=== PATIENT | male | born 1945 | race Two or more races ===

== ENCOUNTER 2018-02-05 16:39 | Outpatient (CLI) | payer OTHER | END 2018-02-05 16:53 | disposition home or self-care (01) | LOC: LAB 16:39 | DX: R97.20 Elevated prostate specific antigen [PSA] (principal) ==

== ENCOUNTER 2018-02-12 07:13 | Outpatient (CLI) | payer OTHER | END 2018-02-12 11:10 | disposition home or self-care (01) | LOC: SONOGRAMA 07:13 | DX: R97.20 Elevated prostate specific antigen [PSA] (principal) ==

== ENCOUNTER 2020-02-22 14:18 | Outpatient (CLI) | payer OTHER | END 2020-02-22 15:00 | disposition home or self-care (01) | LOC: LAB 14:18 | PROVIDERS: ATTEND Urology | DX: N30.00 Acute cystitis without hematuria (principal) ==

== ENCOUNTER 2020-03-22 08:51 | Outpatient (CLI) | payer OTHER | END 2020-03-22 08:58 | disposition home or self-care (01) | LOC: SONOGRAMA 08:51 → MAMO-SONO 09:45 | PROVIDERS: ATTEND Urology | DX: R97.20 Elevated prostate specific antigen [PSA] (principal); R31.1 Benign essential microscopic hematuria; N40.1 Benign prostatic hyperplasia with lower urinary tract symptoms ==

== ENCOUNTER 2020-09-26 07:13 | Outpatient (CLI) | payer OTHER | END 2020-09-26 07:15 | disposition home or self-care (01) | LOC: TOM 07:13 | PROVIDERS: ATTEND Urology | DX: Q61.02 Congenital multiple renal cysts (principal); K57.90 Diverticulosis of intestine, part unspecified, without perforation or abscess without bleeding; N30.00 Acute cystitis without hematuria; N40.1 Benign prostatic hyperplasia with lower urinary tract symptoms; R31.1 Benign essential microscopic hematuria | CPT/HCPCS: 74177; Q9965 ==

== ENCOUNTER 2021-01-26 06:54 | Outpatient (CLI) | payer OTHER | END 2021-01-26 07:01 | disposition home or self-care (01) | LOC: RAD 06:54 | PROVIDERS: ATTEND Orthopaedic Surgery | DX: M25.561 Pain in right knee (principal); M25.562 Pain in left knee ==

== ENCOUNTER 2021-03-15 12:49 | Outpatient (CLI) | payer OTHER | END 2021-03-15 12:54 | disposition home or self-care (01) | LOC: SONOGRAMA 12:49 → MAMO-SONO 13:15 | PROVIDERS: ATTEND Urology | DX: N30.00 Acute cystitis without hematuria (principal); N40.1 Benign prostatic hyperplasia with lower urinary tract symptoms ==

== ENCOUNTER 2021-05-18 07:00 | Inpatient (IN) | payer OTHER ==
[~2021-05-18] VITALS: Ht 160 cm; Wt 59.0 kg
[2021-05-18] MEDS ORDERED: TAMS0.4C PO (08:04)
[2021-05-18] MEDS ORDERED: TADALAFIL PO (08:04)
[2021-05-22] MEDS ORDERED: ZADITOR5 ML (08:37)
[2021-05-22] MEDS ORDERED: CIALIS5 MG PO (08:37)
== END 2021-05-23 08:55 | disposition home or self-care (01) | DRG 714 ==
LOC: SURH 05-22 05:10 → O/R 05-22 05:10 → SURH 05-22 07:00
PROVIDERS: ADMIT Urology; ATTEND Urology
PROC: 0VT08ZZ Resection of Prostate, Via Natural or Artificial Opening Endoscopic (ICD-10-PCS; principal; 2021-05-22 07:00)
DX: N40.1 Benign prostatic hyperplasia with lower urinary tract symptoms (principal); Z20.822 Contact with and (suspected) exposure to COVID-19; R33.8 Other retention of urine

== ENCOUNTER 2021-08-30 10:34 | Outpatient (CLI) | payer OTHER ==
[~2021-08-30 10:34] MED LIST: CIALIS5 MG PO; TADALAFIL PO; TAMS0.4C PO; ZADITOR5 ML
== END 2021-08-30 10:40 | disposition home or self-care (01) ==
LOC: LAB 10:34
PROVIDERS: ATTEND Urology
DX: N30.00 Acute cystitis without hematuria (principal); N40.1 Benign prostatic hyperplasia with lower urinary tract symptoms; R97.20 Elevated prostate specific antigen [PSA]

== ENCOUNTER 2022-12-25 13:16 | Outpatient (CLI) | payer OTHER | END 2022-12-25 13:25 | disposition home or self-care (01) | LOC: SONOGRAMA 13:16 | PROVIDERS: ATTEND Urology | DX: R31.1 Benign essential microscopic hematuria (principal); N30.00 Acute cystitis without hematuria; N40.1 Benign prostatic hyperplasia with lower urinary tract symptoms ==

== ENCOUNTER 2023-11-26 07:01 | Outpatient (CLI) | payer OTHER | END 2023-11-26 07:10 | disposition home or self-care (01) | LOC: RAD 07:01 | PROVIDERS: ATTEND Urology | DX: N40.0 Benign prostatic hyperplasia without lower urinary tract symptoms (principal); N20.0 Calculus of kidney; R97.20 Elevated prostate specific antigen [PSA]; R31.1 Benign essential microscopic hematuria ==

== ENCOUNTER 2024-11-02 12:11 | Outpatient (CLI) | payer OTHER | END 2024-11-02 12:17 | disposition home or self-care (01) | LOC: RAD 12:11 | DX: I15.8 Other secondary hypertension (principal); I10 Essential (primary) hypertension ==

== ENCOUNTER 2024-12-22 12:41 | Outpatient (CLI) | payer OTHER | END 2024-12-22 12:43 | disposition home or self-care (01) | LOC: SONOGRAMA 12:41 | PROVIDERS: ATTEND Urology | DX: N40.1 Benign prostatic hyperplasia with lower urinary tract symptoms (principal); R33.9 Retention of urine, unspecified; N40.0 Benign prostatic hyperplasia without lower urinary tract symptoms; N20.0 Calculus of kidney ==

== ENCOUNTER 2025-04-13 13:12 | Outpatient (CLI) | payer OTHER | END 2025-04-13 13:16 | disposition home or self-care (01) | LOC: RAD 13:12 | PROVIDERS: ATTEND General Practice | DX: M79.641 Pain in right hand (principal) ==